=== PATIENT | female | born 1985 | race Two or more races ===

== ENCOUNTER 2017-03-20 20:10 | Inpatient (IN) | payer OTHER ==
[2017-03-20 21:00] VITALS: BMI 24.0
--- NOTE | 2017-03-20 21:50 | OBADHP ---
Datetime: 03/20/2017 21:33 Admit Comment, IP Provider: 31 yo g1 edc 03/25 by lmp _ 12wk us presents for induction @ 39.2wks. Sh e reports good fm. denies srom or bleeding. 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 rpr induction procedure d/w pt. Pelvic Type - PN: Adequate Extremities - PN: Normal Abdomen - PN: Normal Lungs - PN: Normal Heart - PN: Normal Neurologic - PN: Normal HEENT - PN: Normal General - PN: Normal Presentation-Admit: Vertex FHR - Baseline A Provider: 130 Membranes, Provider: Intact Contraction Comments Provider: q4-6min Comments, ACOG Physical Exam: bedside us: vtx gbs neg ri hiv neg hepBneg O+ rpr neg 1s trim Vital Signs Provider: Within Normal Limits IP Chief Complaint: Uterine contractions; Scheduled induction of labor NICHD Variability Prov Fetus A: Moderate 6-25bpm NICHD Accel Fetus A IP Provider: [id number] FHR Category Provider Fetus A: Category I NICHD Decel Fetus A IP Provider: None Dilatation, Provider: 0 Effacement, Provider: 20 Station, Provider: -3 Genitourinary Exam: Normal IP Adm Impression: Postterm, intrauterine IP Admit Plan: Admit to unit; Initiate labor induction protocol
[2017-03-20 21:52] LABS: BASO # 0.1 K/uL (0.0-0.2); BASO % 0.4 % (0.0-2.0); EOS # 0.1 K/uL (0.0-0.7); EOS % 0.8 % (0.0-4.0); HEMOGLOBIN 10.7 g/dL (12.0-16.0); LYMPH % 13.7 % (20.0-40.0); MEAN CELL VOLUME 93.8 fl (81.0-99.0); MEAN CORPUSCULAR HEMOGLOBIN 31.2 pg (27.0-31.0); MEAN CORPUSCULAR HGB CONC 33.3 g/dL (33.0-37.0); MEAN PLATELET VOLUME 8.4 fl (7.2-11.7); MONO # 0.9 K/uL (0.0-0.8); MONO % 5.9 % (0.0-10.0); NEUT # 11.6 K/uL (1.8-7.0); NEUT % 79.2 % (50.0-75.0); RBC 3.44 Mil/uL (3.80-5.20); RED CELL DISTRIBUTION WIDTH 13.9 % (11.5-14.5); WHITE BLOOD COUNT 14.7 K/uL (4.8-10.8)
--- NOTE | 2017-03-21 09:48 | OBPN ---
Datetime: 03/21/2017 08:30 IP Progress Impression: Reassuring heart rate IP Informed Consent Obtain: Vaginal Delivery; Risks, Benefits and Alternatives Discussed IP Progress Plan: Continue present management Contraction Comments Provider: occ IP Progress Note Comment: OB Hospitalist on-call - sign out rec'd from Geoff Overton...IOL started with Cervidil A: IUP at 39w PLAN: cont Cervidil...eval after 12h...disucssion baout continued IOL< meidcations with their risk s/complications...incl Cytotec/Piotcin FHR Category Provider Fetus A: Category I NICHD Decel Fetus A IP Provider: None Datetime: 03/20/2017 21:33 Membranes, Provider: Intact FHR - Baseline A Provider: 130 Presentation-Admit: Vertex Vital Signs Provider: Within Normal Limits NICHD Accel Fetus A IP Provider: [id number] NICHD Variability Prov Fetus A: Moderate 6-25bpm Dilatation, Provider: 0 Effacement, Provider: 20 Station, Provider: -3
--- NOTE | 2017-03-21 11:09 | OBPN ---
Datetime: 03/21/2017 11:00 IP Progress Impression: Reassuring heart rate; Reactive non-stress test IP Informed Consent Obtain: Vaginal Delivery; Risks, Benefits and Alternatives Discussed IP Progress Plan: Continue present management; Induction; Cervical Ripening Pool Provider: Negative Membranes, Provider: Intact FHR - Baseline A Provider: 140 Presentation-Admit: Vertex IP Progress Note Comment: She feels occ CTX; no SROM; +FM A: IUP at 39w PLNA cervidil removed...start Cytotec 50mcg po q4h NICHD Accel Fetus A IP Provider: [id number] FHR Category Provider Fetus A: Category I NICHD Variability Prov Fetus A: Moderate 6-25bpm Dilatation, Provider: FT Effacement, Provider: 0 Station, Provider: HIGH NICHD Decel Fetus A IP Provider: None
[2017-03-21] MEDS ORDERED: Lactated Ringer's 1,000 ML IV PRN (21:13)
[2017-03-21] MEDS ORDERED: Bupivacaine HCl 0.25% PF (10 ml) Inj ONE (21:50)
[2017-03-21] MEDS ORDERED: Fentanyl/Bupivacaine HCl 0 ML EPI ONE (21:50)
[2017-03-21] MEDS ORDERED: Lidocaine 1% Inj (20ml) ONE (21:59)
[2017-03-21] MEDS ORDERED: Oxytocin 20 units in LR 2,000 ML IV ONE (22:00)
--- NOTE | 2017-03-21 22:08 | OBPN ---
Datetime: 03/21/2017 22:00 IP Progress Impression: Normal progression of labor; Reassuring heart rate IP Informed Consent Obtain: Vaginal Delivery; Risks, Benefits and Alternatives Discussed IP Progress Plan: Continue present management Pool Provider: Positive Membranes, Provider: Ruptured Contraction Comments Provider: 1-2m FHR - Baseline A Provider: 120 Presentation-Admit: Vertex IP Progress Note Comment: NOtified earlier that she had SROM 21:30pm. She was 3-4cm and requested e pidural. While IV hydratin was being gven, she felt more CTX. Fully dlated 0 statoin...she wants to push with CTX Second stage of labor - anticipate NICHD Accel Fetus A IP Provider: 15X15 FHR Category Provider Fetus A: Category I NICHD Variability Prov Fetus A: Moderate 6-25bpm Dilatation, Provider: 10 Effacement, Provider: 100 Station, Provider: 0
[2017-03-22] MEDS ORDERED: Benzocaine/Menthol SPRAY TOP PRN (00:02)
[2017-03-22] MEDS ORDERED: Oxycodone/Acetaminophen 5/325 mg Tab PO PRN ×2 (00:02→02:06)
[2017-03-22] MEDS: Benzocaine/Menthol SPRAY TOP PRN ×2 (02:24→09:18)
[2017-03-22] MEDS ORDERED: Multivitamin With Minerals Tab PO SCH (09:00)
[2017-03-22] MEDS: Multivitamin With Minerals Tab PO SCH (09:18)
[2017-03-22 12:54] LABS: HEMOGLOBIN 8.9 g/dL (12.0-16.0); RBC 2.88 Mil/uL (3.80-5.20); RED CELL DISTRIBUTION WIDTH 14.1 % (11.5-14.5); WHITE BLOOD COUNT 19.9 K/uL (4.8-10.8)
[2017-03-22 18:20] LABS: ALB/GLOB RATIO 1.1 (1.0-2.1); ALBUMIN 2.9 g/dL (3.5-5.0); ALT/SGPT 28 U/L (9-52); AST/SGOT 88 U/L (14-36); BLOOD UREA NITROGEN 5 mg/dl (7-17); CALCIUM 8.6 mg/dL (8.4-10.2); GFR AFRICAN-AMERICAN > 60; GFR NON-AFRICAN AMERICAN > 60
[2017-03-22] MEDS ORDERED: Enoxaparin 40 mg Syringe SC SCH ×2 (18:45→19:00)
[2017-03-23] MEDS: Multivitamin With Minerals Tab PO SCH (09:00)
--- NOTE | 2017-03-23 13:45 | OBPPN ---
Datetime: 03/23/2017 13:40 PP Pain Prov: Within normal limits PP Nausea Prov: Denies PP Flatus Prov: Yes PP BM Prov: Yes PP Breasts Prov: Normal PP Heart Prov: Normal PP Lungs Prov: Normal PP Abdomen/Uterus Prov: Normal PP Lochia Prov: Normal PP Vulva/Perineum Prov: Normal PP CVA Tenderness Prov: Normal PP Extremities Prov: Normal PP C/S Incision Prov: Not Applicable PP Progress Prov: Normal PP Impression Prov: Normal progression PP Plan Prov: Continue present management; Discharge PP Progress Note Prov: PPD #2 s/p , recovering well Discharge home today Resume Lovenox F/U with Dr. Dalal 4-6weeks IP PP Procedures: None Vital Signs Provider PP: Reviewed; Within Normal Limits
[2017-03-23 18:42] VITALS: BP 101/56; PULSE 91; RESP 20; TEMP 97.6; O2SAT 98
== END 2017-03-23 14:30 | disposition home or self-care (01) | DRG 775 ==
LOC: H.EROB2 20:10 → H.L&D 21:21 → H.OB/GYN 03-22 06:36
PROVIDERS: ADMIT Obstetrics & Gynecology; ATTEND Obstetrics & Gynecology
PROC: 0KQM0ZZ Repair Perineum Muscle, Open Approach (ICD-10-PCS; principal; 2017-03-20)
PROC: 10E0XZZ Delivery of Products of Conception, External Approach (ICD-10-PCS; 2017-03-20)
PROC: 4A1HXCZ Monitoring of Products of Conception, Cardiac Rate, External Approach (ICD-10-PCS; 2017-03-20)
DX: O70.1 Second degree perineal laceration during delivery (principal); Z37.0 Single live birth; Z3A.39 39 weeks gestation of pregnancy